=== PATIENT | male | born 1960 | race Hispanic/Latino ===

== ENCOUNTER → 2023-11-16 | Outpatient (CLI) | payer MEDICARE | END | disposition home or self-care (01) | LOC: EDUNIT# 10-13 11:40 → SHCH 08:41 | PROVIDERS: ATTEND Internal Medicine Cardiovascular Disease | DX: I87.2 Venous insufficiency (chronic) (peripheral) (principal) | CPT/HCPCS: 93306; 93970 ==

== ENCOUNTER → 2023-11-30 | Outpatient (CLI) | payer MEDICARE ==
[~2023-11-30] MED LIST: REGADENOSON 0.4 MG/5 ML PF SYG IVP ONE
== END | disposition home or self-care (01) ==
LOC: EDUNIT# 10-16 08:40 → SHCH 08:11
PROVIDERS: ATTEND Internal Medicine Cardiovascular Disease
DX: I25.10 Atherosclerotic heart disease of native coronary artery without angina pectoris (principal); I87.2 Venous insufficiency (chronic) (peripheral)
CPT/HCPCS: J2785

== ENCOUNTER → 2024-05-16 | Outpatient (CLI) | payer OTHER ==
--- NOTE | 2024-05-18 09:18 | HMCSR ---
APPROVED REPORT Bilateral Lower Extremity Venous Study for Venous Competence., DVT. Indications PVD Vein Imaging CFV (R): Normal flow, augmentation and compression. No evidence of DVT. 19.1mm 1472ms of reflux SFJ (R): Normal flow, augmentation and compression. No evidence of DVT. FEM (R): Normal flow, augmentation and compression. No evidence of DVT. POP (R): Normal flow, augmentation and compression. No evidence of DVT. DFV (R): Normal flow, augmentation and compression. No evidence of DVT. PTV (R): Normal flow, augmentation and compression. No evidence of DVT. Peroneals (R): Normal flow, augmentation and compression. No evidence of DVT. CFV (L): Normal flow, augmentation and compression. No evidence of DVT. 16.2mm 783ms of reflux. SFJ (L): Normal flow, augmentation and compression. No evidence of DVT. FEM (L): Normal flow, augmentation and compression. No evidence of DVT. POP (L): Normal flow, augmentation and compression. No evidence of DVT. DFV (L): Normal flow, augmentation and compression. No evidence of DVT. PTV (L): Normal flow, augmentation and compression. No evidence of DVT. Peroneals (L): Normal flow, augmentation and compression. No evidence of DVT. Technologist Impression Deep veins of bilateral lower extremities appear patent and compressible without thrombus. Deep vein reflux seen in the RCFV Superficial venous insufficiency seen in the RSSV RGSV Junction 6.6mm 289ms thigh 2.7mm 289ms knee 3.0mm 0.0ms calf 2.5mm 0.0ms (cluster of veins) RSSV Prox 2.3mm 500ms Mid 3.0mm 400ms LGSV Junction 6.9mm 222ms thigh 4.1mm 394ms knee 3.9mm 172ms calf 2.2mm 389ms (cluster of veins) LSSV Prox 3.3mm 0.0ms Mid 2.5mm 0.0ms Conclusion Deep veins of bilateral lower extremities appear patent and compressible without thrombus. Deep vein reflux seen in the RCFV Superficial venous insufficiency seen in the RSSV Conclusion Deep veins of bilateral lower extremities appear patent and compressible without thrombus. Deep vein reflux seen in the RCFV Superficial venous insufficiency seen in the RSSV
== END | disposition home or self-care (01) ==
LOC: SHCH 12:57
PROVIDERS: ATTEND Internal Medicine Cardiovascular Disease
DX: I87.2 Venous insufficiency (chronic) (peripheral) (principal); I73.9 Peripheral vascular disease, unspecified; R60.9 Edema, unspecified
CPT/HCPCS: 93970